=== PATIENT | male | born 1975 | race Caucasian/White ===

== ENCOUNTER 2016-08-15 16:06 | Emergency (ER) | payer OTHER ==
[2016-08-15 16:17] VITALS: TEMP 98.1; BMI 30.2
--- NOTE | 2016-08-15 17:05 | PDOC ---
History of Present Illness <Colleen Sutton - Last Filed: 08/15/16 18:58> - General History Source: Patient Exam Limitations: No Limitations - History of Present Illness Initial Comments: 08/15/16 18:14 The patient is a 41 year old male, with a significant past medical history of hypertension, who presents to the emergency department with intermittent left sided chest discomfort for the past two months. The patient describes the chest discomfort as a pressure and notes that it is nonradiating in nature without exacerbating or alleviating factors. The patient reports that the chest pain is not affected by movement. The patient additionally reports rectal bleeding (the patient estimates 2 episodes per month for the past year). The patient additionally reports right knee pain for the past couple of months. The patient denies any injury or trauma. The patient reports that he does not have a PCP so therefore has not followed up regarding any of these symptoms. The patient denies shortness of breath. The patient denies fever, chills, nausea, vomiting, diarrhea or abdominal pain. Allergies: None reported. Past Surgical History: Appendectomy. Social History: Non smoker. Denies alcohol or drug use. <Dede Priest - Last Filed: 08/15/16 19:12> - General Chief Complaint: Chest Pain Stated Complaint: CHEST PAIN/RECTAL BLEEDING/RT LEG PAIN Time Seen by Provider: 08/15/16 16:19 Past History - Psycho/Social/Smoking Cessation Hx Suicidal Ideation: No Smoking History: Never smoked <Colleen Sutton - Last Filed: 08/15/16 18:58> <Dede Priest - Last Filed: 08/15/16 19:12> - Past Medical History Allergies/Adverse Reactions: Allergies Allergy/AdvReac Type Severity Reaction Status Date / Time No Known Allergies Allergy Verified 08/15/16 16:13 Home Medications: Ambulatory Orders NK [No Known Home Medication] 08/15/16 Review of Systems - Review of Systems Able to Perform ROS?: Yes Comments:: 08/15/16 18:13 GENERAL/CONSTITUTIONAL: No fever or chills. No weakness. HEAD, EYES, EARS, NOSE AND THROAT: No change in vision. No ear pain or discharge. No sore throat. CARDIOVASCULAR: +Chest discomfort. No shortness of breath. RESPIRATORY: No cough, wheezing, or hemoptysis. GASTROINTESTINAL: +Rectal bleeding. No nausea, vomiting, diarrhea or constipation. GENITOURINARY: No dysuria, frequency, or change in urination. MUSCULOSKELETAL: +Right knee pain. No neck or back pain. SKIN: No rash. NEUROLOGIC: No headache, vertigo, loss of consciousness, or change in strength/ sensation. ENDOCRINE: No increased thirst. No abnormal weight change. HEMATOLOGIC/LYMPHATIC: No anemia, easy bleeding, or history of blood clots. ALLERGIC/IMMUNOLOGIC: No hives or skin allergy. <Dede Priest - Last Filed: 08/15/16 19:12> *Physical Exam - Vital Signs Last Vital Signs Temp Pulse Resp BP Pulse Ox 98.1 F 94 H 19 185/100 100 08/15/16 16:13 08/15/16 16:13 08/15/16 16:13 08/15/16 16:13 08/15/16 16:13 <Colleen Sutton - Last Filed: 08/15/16 18:58> - Vital Signs Last Vital Signs Temp Pulse Resp BP Pulse Ox 98.1 F 94 H 19 185/100 100 08/15/16 16:13 08/15/16 16:13 08/15/16 16:13 08/15/16 16:13 08/15/16 16:13 - Physical Exam Comments: 08/15/16 18:41 GENERAL: Awake, alert, and fully oriented, in no acute distress. HEAD: No signs of trauma. EYES: PERRLA, EOMI, sclera anicteric, conjunctiva clear. ENT: Auricles normal inspection, hearing grossly normal, nares patent, oropharynx clear without exudates. Moist mucosa. NECK: Normal ROM, supple, no lymphadenopathy, JVD, or masses. LUNGS: Breath sounds equal, clear to auscultation bilaterally. No wheezes, and no crackles. HEART: Regular rate and rhythm, normal S1 and S2, no murmurs, rubs or gallops. ABDOMEN: Soft, nontender, normoactive bowel sounds. No guarding, no rebound. No masses. EXTREMITIES: Normal range of motion, no edema. No clubbing or cyanosis. No cords, erythema, or tenderness. NEUROLOGICAL: Cranial nerves II through XII intact. Normal speech, normal gait. SKIN: Warm, dry, normal turgor, no rashes or lesions noted. RECTAL EXAM: External hemorrhoid at the 9-10 oclock position. <Dede Priest - Last Filed: 08/15/16 19:12> ED Treatment Course - LABORATORY CBC & Chemistry Diagram: 08/15/16 17:34 08/15/16 17:34 <Colleen Sutton - Last Filed: 08/15/16 18:58> - LABORATORY CBC & Chemistry Diagram: 08/15/16 17:34 08/15/16 17:34 <Dede Priest - Last Filed: 08/15/16 19:12> Medical Decision Making - Medical Decision Making 08/15/16 19:12 EXAM: RAD/CHEST PA & LAT Reviewed By: Dr. Jose David Coulter IMPRESSION: Normal chest. EXAM: RAD/KNEE 3 POS-RIGHT Reviewed By: Dr. Jose David Coulter IMPRESSION: Normal knee. <Dede Priest - Last Filed: 08/15/16 19:12> *DC/Admit/Observation/Transfer - Discharge Dispostion Admit: No <Colleen Sutton - Last Filed: 08/15/16 18:58> - Attestations Scribe Attestion: 08/15/16 17:50 Documentation prepared by Dede Priest, acting as medical staff manager for Colleen Sutton MD. <Dede Priest - Last Filed: 08/15/16 19:12> Diagnosis at time of Disposition: Chest pain Qualifiers: Chest pain type: unspecified Qualified Code(s): R07.9 - Chest pain, unspecified Knee pain Qualifiers: Laterality: right Chronicity: chronic Qualified Code(s): M25.561 - Pain in right knee - Discharge Dispostion Disposition: HOME Condition at time of disposition: Stable - Patient Instructions Printed Discharge Instructions: DI for Atypical Chest Pain, DI for Knee Pain
[2016-08-15 17:54] LABS: BASOPHIL 1.4 % (0-2.0); MCH 27.9 pg (25.7-33.7); MCHC 33.3 g/dl (32.0-35.9); MEAN CELL VOLUME 83.9 fl (80-96); MEAN PLT VOLUME 8.1 fl (7.5-11.1); PLATELET COUNT 264 K/MM3 (134-434); RDW 12.6 % (11.9-15.9); WHITE BLOOD COUNT 5.3 K/mm3 (4.0-10.0)
[2016-08-15 18:02] LABS: INR 0.96 (0.82-1.09); PROTHROMBIN TIME (PATIENT) 10.6 SEC (9.98-11.88)
[2016-08-15 18:08] VITALS: BP 135/85; PULSE 67
[2016-08-15 18:48] LABS: ALBUMIN 4.2 g/dl (3.4-5.0); ANION GAP 12 (8-16); CALCIUM 9.2 mg/dL (8.5-10.1); CO2 25 mmol/L (21-32); GLUCOSE,RANDOM 88 mg/dL (74-106)
[2016-08-15 18:54] LABS: ALK PHOS 67 U/L (45-117); BILIRUBIN,TOTAL 0.3 mg/dL (0.2-1.0); COCKROFT - GAULT 127.85; SGPT/ALT 41 U/L (12-78); TOT PROT 7.8 g/dl (6.4-8.2); TROPONIN I < 0.02 ng/ml (0.00-0.05)
[2016-08-15 18:57] LABS: SGOT/AST 22 U/L (15-37)
--- NOTE | 2016-08-16 23:01 | EKG ---
Test Reason : Blood Pressure : / mmHG Vent. Rate : 076 BPM Atrial Rate : 076 BPM P-R Int : 168 ms QRS Dur : 098 ms QT Int : 374 ms P-R-T Axes : 070 043 029 degrees QTc Int : 420 ms NORMAL SINUS RHYTHM NORMAL ECG NO PREVIOUS ECGS AVAILABLE Confirmed by ALDO CANAS MD ([id number]) on 08/16/2016 11:01:20 PM Referred By: Confirmed By:ALDO CANAS MD
== END 2016-08-15 19:11 | disposition home or self-care (01) ==
LOC: JER 16:06
DX: R07.89 Other chest pain (principal); M25.561 Pain in right knee
CPT/HCPCS: 36415; 71020-TC; 73562-TC-RT; 80053; 82550; 82553; 84484; 85025; 85610; 86850; 86900; 86901; 93005; 93010; 99284-25